=== PATIENT | male | born 1985 | race Caucasian/White ===

== ENCOUNTER 2022-07-09 09:14 | Outpatient (CLI) | payer BC, SELFPAY ==
[2022-07-09 09:31] LABS: Hematocrit 46.5 % (40.0-54.0); Hemoglobin 15.8 g/dL (14.0-18.0); Mean Corpuscular Hemoglobin 31.2 pg (27.0-31.0); Mean Corpuscular Volume 91.7 fL (78.0-102.0); Mean Platelet Volume 10.1 fl (8.7-11.0); Platelet Count Result 277 K/mm3 (150-420); Red Blood Count 5.07 M/mm3 (4.70-6.10); Red Cell Distribution Width 12.7 % (11.6-14.4); White Blood Count 7.4 K/mm3 (4.8-10.8)
[2022-07-09 10:34] LABS: Alanine Aminotransferase 29 U/L (16-63); Albumin Level 4.2 g/dL (3.4-5.0); Alkaline Phosphatase 123 U/L (46-116); Anion Gap 6 mmol/L (8-16); Aspartate Amino Transferase 15 U/L (15-37); Bilirubin,Total 0.2 mg/dL (0.00-1.00); Blood Urea Nitrogen 13 mg/dL (7-18); Carbon Dioxide 28 mmol/L (21-32); Chloride 108 mmol/L (98-108); Cholesterol 213 mg/dL (0-200); Estimated Glomerular Filt Rate > 60; Folic Acid 4.8 ng/mL (8.6->20); Glucose 121 mg/dL (70-99); HDL Direct 66 mg/dL (40-60); LDL Cholesterol Calculated 137 mg/dL (<130); Osmolality Calculated 295 mOsm/kg (285-295); Potassium 4.7 mmol/L (3.5-5.1); Sodium 142 mmol/L (136-145); Total Protein 7.1 g/dL (6.4-8.2); Triglycerides 50 mg/dL (0-150); Vitamin B12 1610 pg/mL (193-986)
== END 2022-07-09 09:15 | disposition home or self-care (01) ==
PROVIDERS: PCP Family Medicine; Visit Provider Family Medicine
DX: G40.909 Epilepsy, unspecified, not intractable, without status epilepticus (principal); E53.8 Deficiency of other specified B group vitamins
CPT/HCPCS: 36415; 80053; 80061; 82607; 82746; 85027

== ENCOUNTER 2022-10-22 09:07 | Outpatient (CLI) | payer OTHER, SELFPAY ==
[2022-10-22 09:19] LABS: Hematocrit 46.7 % (40.0-54.0); Hemoglobin 15.6 g/dL (14.0-18.0); Mean Corpuscular HGB Conc 33.4 g/dL (32.0-36.0); Mean Corpuscular Hemoglobin 31.1 pg (27.0-31.0); Platelet Count Result 281 K/mm3 (150-420); Red Blood Count 5.02 M/mm3 (4.70-6.10); Red Cell Distribution Width 13.3 % (11.6-14.4)
[2022-10-22 09:59] LABS: Alanine Aminotransferase 30 U/L (16-63); Albumin Level 4.3 g/dL (3.4-5.0); Alkaline Phosphatase 130 U/L (46-116); Anion Gap 6 mmol/L (8-16); Aspartate Amino Transferase 18 U/L (15-37); Bilirubin,Total 0.4 mg/dL (0.00-1.00); Blood Urea Nitrogen 9 mg/dL (7-18); Carbon Dioxide 31 mmol/L (21-32); Chloride 105 mmol/L (98-108); Estimated Glomerular Filt Rate > 60; Glucose 89 mg/dL (70-99); Osmolality Calculated 291 mOsm/kg (285-295); Potassium 4.9 mmol/L (3.5-5.1); Sodium 142 mmol/L (136-145); Total Protein 7.3 g/dL (6.4-8.2)
[2022-10-22 10:14] LABS: CRP < 0.5 mg/dL (0.0-0.9)
[2022-10-22 10:15] LABS: Thyroid Stimulating Hormone Reflex 1.62 u/IU/mL (0.36-3.74)
== END 2022-10-22 09:08 | disposition home or self-care (01) ==
LOC: CHSLAB 09:09
PROVIDERS: PCP Family Medicine; Visit Provider Family Medicine
DX: E11.9 Type 2 diabetes mellitus without complications (principal); R63.4 Abnormal weight loss
CPT/HCPCS: 36415; 80053; 84443; 85027; 86140

== ENCOUNTER 2022-10-23 09:32 | Outpatient (CLI) | payer OTHER, SELFPAY ==
--- NOTE | 2022-10-25 15:43 | WPDHOLTEREM ---
Holter/Event Monitor Holter/Event Monitor Date of procedure: 10/23/22 Holter/Event Procedure: 48 Hr Holter Monitor Indications: Syncope Conclusion: 1. 48 hour holter monitor on 10/23/22. 2. Underlying rhythm is sinus rhythm. HR range 53-136 bpm; average HR 82 bpm. 3. There is 1 premature supraventricular complex. No supraventricular tachycardia. 4. No premature ventricular complexes. No ventricular tachycardia. 5. No sinoatrial or atrioventricular blocks. No significant pauses greater than 2 seconds. 6. No symptoms available for correlation.
== END 2022-10-23 09:33 | disposition home or self-care (01) ==
LOC: CHSCARD 09:34
PROVIDERS: PCP Family Medicine; Visit Provider Family Medicine
DX: R55 Syncope and collapse (principal)
CPT/HCPCS: 93225; 93226

== ENCOUNTER 2024-11-19 11:29 | Outpatient (CLI) | payer OTHER, SELFPAY ==
--- OUTSIDE RECORDS SUMMARY | 2024-11-19 11:33 | XMS_ITS | Clinical Summary ---
Author Organization [facility] Address [address] [place] [address] Care Team Providers Care Numerical Control Tool Programmer Name Role Phone Anthony Seo DO Primary Care Provider [phone] Anthony Seo DO Unavailable [phone] Allergies No known active allergies Medications Respiratory Therapy Supplies (NEBULIZER/TUBIN G/MOUTHPIECE) KitIndications:M ild intermittent asthma, unspecified whether complicated (HHS/HCC) 1 Units by Does not apply route daily. 1 kit 9 Active montelukast 10 MG tabletIndication s:Exacerbation of asthma, unspecified asthma severity, unspecified whether persistent (HHS/HCC) Take 1 tablet (10 mg total) by mouth nightly at bedtime. 30 tablet 1 0 Active Fluticasone-Salm eterol (AIRDUO RESPICLICK /) 232-14 MCG/ACT AEROSOL POWDER, BREATH ACTIVATEDIndicat ions:Mild intermittent asthma, unspecified whether complicated (HHS/HCC),Exacer bation of asthma, unspecified asthma severity, unspecified whether persistent (HHS/HCC) Inhale 1 puff into the lungs 2 (two) times a day. 1 each 0 Active albuterol sulfate HFA 108 (90 Base) MCG/ACT inhalerIndicatio ns:Exacerbation of asthma, unspecified asthma severity, unspecified whether persistent (HHS/HCC) Inhale 2 puffs into the lungs every 4 (four) hours as needed for Wheezing. 8 g 6 0 Active ipratropium-albu terol 0.5-2.5 (3) MG/3ML SolutionIndicati ons:Exacerbation of asthma, unspecified asthma severity, unspecified whether persistent ([facility]) Take 3 mLs by nebulization every 6 (six) hours as needed. 180 mL 3 0 Active albuterol (2.5 MG/3ML) 0.083% nebulizer solutionIndicati ons:Exacerbation of asthma, unspecified asthma severity, unspecified whether persistent ([facility]) Take 3 mLs (2.5 mg total) by nebulization every 6 (six) hours as needed. 360 mL 1 0 Active phenytoin ER (DILANTIN) 100 MG capsuleIndicatio ns:Nonintractabl e epilepsy with status epilepticus, unspecified epilepsy type ([facility]) Take 2 capsules (200 mg total) by mouth 3 (three) times daily. 180 capsule 11 0 Active ipratropium (ATROVENT HFA) 17 MCG/ACT inhaler Inhale 2 puffs into the lungs every 6 (six) hours as needed for Wheezing. 12.9 g 1 Active Active Problems Problem Noted Date Diagnosed Date Phlebitis 10/15/2018 Numbness and tingling of right arm 10/15/2018 Lumbar back pain 09/17/2018 Exacerbation of asthma, unsp ecified asthma severity, unspecified whether persistent ([facility]) 09/17/2018 Cervical pain (neck) 11/18/2017 Thoracic back pain 11/18/2017 Depression, major 06/28/2016 Asthma ([facility]) 01/04/2014 Epilepsy ([facility]) 05/19/2013 Immunizations Immunization Administration Dates Next Due Dtp 03/08/1992,11/23/1991,09/08/1991 Hepatitis B 10/30/1998,06/01/1998,05/01/1998 Hib 03/08/1992,11/23/1991,09/08/1991 MMR 05/01/1998,09/08/1991 Opv 03/08/1992,11/23/1991,09/08/1991 Td 05/01/1998 Tdap (Adacel) 01/28/2021 Family History Medical History Relation Comments Cancer Father Coronary artery disease Father Diabetes Father Hypertension Father Relation Status Comments Father Mother Alive Social History Tobacco Use Types Packs/Day Years Used Date Smoking Tobacco: Every Day Cigarettes Smokeless Tobacco: Never Tobacco Cessation:Ready to Q uit: No; Counseling Given: Yes Alcohol Use Standard Drinks/Week Comments No 0 (1 standard drink = 0.6 oz pur e alcohol) AUDIT-C Answer Date Recorded Frequency of Alcohol Consumption Never 09/17/2018 Average Number of Drinks Not on file 019 Frequency of Binge Drinking Not on file 09/04 Education Answer Date Recorded What is the highest level of school you have completed or the highest degree you have received? High school graduate 09/17/2018 Sex and Gender Information Value Date Recorded Sex Assigned at Not on file Legal Sex Male 7:45 PM CDT Gender Identity Not on file Sexual Orientation Not on file Last Filed Vital Signs Vital Sign Reading Time Taken Comments Blood Pressure 112/77 09/01/2023 4:08 PM CHANGE COORDINATOR Pulse 87 09/01/2023 4:08 PM CHANGE COORDINATOR Temperature 36.8 C (98.2 F) 09/01/2023 4:08 PM CHANGE COORDINATOR Respiratory Rate 20 09/01/2023 4:08 PM CHANGE COORDINATOR Oxygen Saturation 99% 09/01/2023 6:00 PM CHANGE COORDINATOR Inhaled Oxygen Concentration - - Weight 81.6 kg (180 lb) 09/01/2023 4:08 PM CHANGE COORDINATOR Height 177.8 cm (5' 10 ) 09/01/2023 4:08 PM CHANGE COORDINATOR Body Mass Index 25.83 09/01/2023 4:08 PM CHANGE COORDINATOR Plan of Treatment Health Maintenance Due Date Last Done Comments Annual Physical 1990 Hepatitis C 2005 Pneumococcal Vaccine: Pediatrics (0 to 5 Years) and At-Risk Patients (6 to 49 Years) (1 of 2 - PCV) 2006 COVID-19 Vaccine ( - 2023- season) 2024 DTaP, Tdap and Td Vaccines (3 - Td or Tdap) 01/28/2031 01/28/2021, 05/01/1998, 03/08/1992, Additional history exists Hepatitis B Vaccines Completed 10/30/1998, 06/01/1998, 05/01/1998 HPV Vaccines Aged Out No longer eligi ble based on patient's age to complete this topic Meningococcal B Vaccine Aged Out No l onger eligible based on patient's age to complete this topic Meningococcal Vaccine Aged Out No jesus laith eligible based on patient's age to complete this topic RSV Immunizations Under 20 Months Aged Out No longer eligible based on patient's age to complete this topic Insurance [place] Member Subscriber Plan / Payer (Ef fective 2022-Present) Name:Andriy Fields Relation to Subscriber:Self Name:Andriy Fields Payer ID:[id number] (NAIC) Type:Not on file Address: [address] [employer] [place] [address] Care Teams Numerical Control Tool Programmer Relationship Specialty Start Date End Date Anthony Seo DO [address] [place] [address] PCP - General FAMILY PRACTICE 07/22/22 Anthony Seo DO [address] [place] [address] FAMILY PRACTICE 07/22/22
[2024-11-19 11:48] LABS: Basophils Absolute Auto 0.08 K/mm3 (0.00-0.10); Basophils Percent Auto 0.9 % (0.0-1.0); Eosinophils Absolute Auto 0.48 K/mm3 (0.02-0.50); Eosinophils Percent Auto 5.7 % (1.0-6.0); Hemoglobin 15.9 g/dL (14.0-18.0); Immature Granulocyte Absolute 0.02 K/mm3 (0.00-0.00); Immature Granulocyte Percent A 0.2 % (0.0-0.0); Lymphocytes Absolute Auto 2.17 K/mm3 (1.10-4.50); Lymphocytes Percent Auto 25.7 % (18.0-42.0); Mean Corpuscular HGB Conc 33.8 g/dL (32-36); Mean Corpuscular Hemoglobin 30.7 pg (27.0-31.0); Mean Corpuscular Volume 90.7 fL (78.0-102.0); Mean Platelet Volume 9.6 fl (8.7-11.0); Monocytes Absolute Auto 0.71 K/mm3 (0.10-0.90); Monocytes Percent Auto 8.4 % (2.0-11.0); Neutrophils Absolute Auto 4.99 K/mm3 (1.70-7.20); Neutrophils Percent Auto 59.1 % (50.0-70.0); Platelet Count Result 259 K/mm3 (150-420); Red Blood Count 5.18 M/mm3 (4.70-6.10); Red Cell Distribution Width 12.8 % (11.6-14.4); White Blood Count 8.5 K/mm3 (4.8-10.8)
[2024-11-19 12:31] LABS: Alanine Aminotransferase 44 U/L (16-63); Alkaline Phosphatase 173 U/L (46-116); Anion Gap 8 mmol/L (4-12); Aspartate Amino Transferase 11 U/L (15-37); Bilirubin,Total 0.4 mg/dL (0.00-1.00); Blood Urea Nitrogen 7 mg/dL (7-18); Calcium 9.2 mg/dL (8.5-10.1); Carbon Dioxide 27 mmol/L (21-32); Chloride 106 mmol/L (98-108); Cholesterol 220 mg/dL (0-200); Estimated Glomerular Filt Rate > 60; Glucose 79 mg/dL (70-99); HDL Direct 62 mg/dL (40-60); LDL Cholesterol Calculated 146 mg/dL (<130); Osmolality Calculated 289 mOsm/kg (285-295); Phenytoin Dilantin 11 ug/mL (10-20); Potassium 4.3 mmol/L (3.5-5.1); Sodium 141 mmol/L (136-145); Total Protein 7.1 g/dL (6.4-8.2); Triglycerides 59 mg/dL (0-150)
[2024-11-19 12:35] LABS: Thyroid Stimulating Hormone Reflex 1.27 u/IU/mL (0.36-3.74)
== END 2024-11-19 11:30 | disposition home or self-care (01) ==
LOC: CHSLAB 11:30
PROVIDERS: PCP Family Medicine; Visit Provider Family Medicine
DX: G40.909 Epilepsy, unspecified, not intractable, without status epilepticus (principal); E03.9 Hypothyroidism, unspecified
CPT/HCPCS: 36415; 80053; 80061; 80185; 84443; 85025